=== PATIENT | female | born 1960 | race Caucasian/White ===

== ENCOUNTER → 2020-10-07 | Outpatient (CLI) | payer OTHER | LOC: SJCVCIMAG | PROVIDERS: ATTEND Internal Medicine | DX: I08.1 Rheumatic disorders of both mitral and tricuspid valves (principal); R94.31 Abnormal electrocardiogram [ECG] [EKG] ==

== ENCOUNTER → 2020-10-09 | Outpatient (CLI) | payer OTHER | LOC: SJCVCIMAG 10:12 | PROVIDERS: ATTEND Internal Medicine | DX: I49.3 Ventricular premature depolarization (principal); Z01.818 Encounter for other preprocedural examination; R06.09 Other forms of dyspnea; R94.31 Abnormal electrocardiogram [ECG] [EKG]; M19.90 Unspecified osteoarthritis, unspecified site; R00.0 Tachycardia, unspecified; R51.9 Headache, unspecified; Z72.89 Other problems related to lifestyle; Z79.899 Other long term (current) drug therapy ==